=== PATIENT | male | born 2005 | race Caucasian/White ===

== ENCOUNTER 2023-04-04 19:13 | Emergency (ER) | payer OTHER, SELFPAY ==
[2023-04-04 19:38] VITALS: BP 123/82; PULSE 113; RESP 18; TEMP 37.4; O2SAT 97
[2023-04-04 19:40] VITALS: BP 123/82; BP 136/86; PULSE 110; PULSE 113; RESP 18; TEMP 37.4; O2SAT 99; BMI 25.1
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
[2023-04-04 21:45] LABS: MANUAL DIFF FLAG NO
[2023-04-04 21:47] LABS: Basophils Percent Auto 0.5 % (0-2); Eosinophils Absolute Auto 0.2 X10*3/uL (0.0-0.4); Eosinophils Percent Auto 1.8 % (0-4); Hematocrit 44.4 % (42.0-52.0); Hemoglobin 15.1 g/dl (14.0-18.0); Imm Gran Abs Auto 0.04 X10*3/uL (0.00-0.03); Imm Gran Pct Auto 0.5 % (0.0-0.4); Lymphocytes Absolute Auto 1.8 X10*3/uL (1.2-4.9); Lymphocytes Percent Auto 20.9 % (20-40); Mean Corpuscular Hemoglobin 27.7 pg (27.0-33.0); Mean Corpuscular Volume 81.5 fL (80.0-98.0); Mean Platelet Volume 9.9 fL (9.4-12.4); Monocytes Absolute Auto 0.8 X10*3/uL (0.1-1.2); Monocytes Percent Auto 8.9 % (2-11); Neutrophils Absolute Auto 5.8 x10*3/uL (2.0-8.3); Neutrophils Percent Auto 67.4 % (45-73); Platelet Count 292 X10*3/uL (160-400); Red Blood Count 5.45 X10*6/uL (4.60-5.80); Red Cell Distribution Width 13.5 % (11.0-16.0); White Blood Count 8.6 X10*3/uL (4.8-10.8)
[2023-04-04 22:07] LABS: Alanine Aminotransferase 22 U/L (0-40); Albumin Level 4.4 g/dL (3.5-5.0); Alkaline Phosphatase 65 U/L (39-117); Anion Gap 15 (12-20); Aspartate Amino Transferase 19 U/L (5-37); Bilirubin Direct 0.2 mg/dL (0.0-0.5); Bilirubin Total 0.3 mg/dL (0.0-1.0); Blood Urea Nitrogen 15 mg/dL (9-16); Calcium 9.6 mg/dL (8.4-10.2); Carbon Dioxide 28 mmol/L (22-29); Chloride 104 mmol/L (96-108); Creatinine Clr Calc Pharmacy 139.7; Estimated Glomerular Filt Rate > 60; Ethanol < 10 mg/dL; Glucose Random 104 mg/dL (60-115); Potassium 4.1 mmol/L (3.3-5.1); Sodium 143 mmol/L (135-145); Total Protein 7.6 g/dL (6.5-8.0)
--- NOTE | 2023-04-05 00:43 | PC.NURSE ---
late entry documentation on 2 client autism dx admitted without parent present client primarily new zealander speaking only, when initially interviewed with sed special education teacher present, patient would only repeat back what he was asked via interepreter, seemingly not understanding what he is being asked. t/w luckily had next admission which was from same ambulance company, clients information was asked of [facility] ambulance staff who sought out info from PD. t/w recived info and later pursued interview when sed special education teacher was available. t/w asked mother about recent behavior, patient gets hyperactive and when he's cleaning
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
--- NOTE | 2023-04-05 01:40 | PC.NURSE ---
[facility] number- [phone] [address].
--- NOTE | 2023-04-05 04:27 | MHC.EDTECH ---
t/w has attempted multiple times to obtain urine sample. pt seems to not understand my request due to cognitive challenges/perhaps language barrier. t/w had placed a hat on the toilet for pt to void in but pt put the hat in the toilet even after multiple times of redirecting pt to leave hat on the toilet. RN and PROVIDER AWARE.
[2023-04-05 05:33] VITALS: BP 125/80; PULSE 87; RESP 16; TEMP 37.4; O2SAT 99
--- NOTE | 2023-04-05 08:24 | PC.NURSE ---
awake, ambulated to the bathroom. able to obtain urine sample at this time.
[2023-04-05 08:33] LABS: Appearance Urine Clear; Color Urine Yellow; Glucose Urine UA Negative (Negative); Leukocyte Esterase Urine Negative (Negative); Nitrite Urine Negative (Negative); Specific Gravity - Urine 1.025 (1.005-1.025); Urine Blood Negative (Negative); Urine Ketones Negative (Negative); Urine Protein Negative (Neg-Trace)
[2023-04-05 08:44] LABS: Amphetamine Screen Urine Not Detected (Not Detect); Barbiturates, Urine Not Detected (Not Detect); Benzodiazepines Screen Urine Not Detected (Not Detect); Cannabinoid Screen Urine Not Detected (Not Detect); Cocaine Screen Urine Not Detected (Not Detect); Fentanyl, urine Not Detected (Not Detect); Opiate Screen Urine Not Detected (Not Detect); Phencyclidine Screen Urine Not Detected (Not Detect)
[2023-04-05 08:48] LABS: Bacteria Urine None Seen (None Seen); Hyaline Casts Urine 0-2 /LPF (0-2); RBC Urine 0-2 /HPF (0-2); Squamous Epithelial Cell Urine 0-2 /HPF (0-2); WBC Urine 0-5 /HPF (0-5)
[2023-04-05 10:25] VITALS: BP 145/91; PULSE 77; TEMP 37.1; O2SAT 98
--- NOTE | 2023-04-05 12:14 | MHC.CARE ---
Patient unable to participate in evaluation, parents are Togolese speaking and provided information via anesthesiology medical doctor. At this time they are seeking help accessing services in the community. Inpatient psychiatric treatment is not indicated and parents are comfortable bringing their son home. ED provider, Dr Cota updated and in agreement with plan of care.
--- NOTE | 2023-04-07 17:54 | MHC.CARE ---
Belinda from S returned my call seeking help for this family applying for disability services. She said that parents should reach out to [employer] in [place] ([phone]), the will help her with the application process and other steps needed for [facility] services, they speak multiple languages and know the process. In addition, they can enroll their son in the local public school, they will be required to test and educate until he is 20 years old. Call to patient's parents via [employer] and gave the above information.
== END 2023-04-05 13:56 | disposition home or self-care (01) ==
PROVIDERS: Emergency Provider Emergency Medicine
DX: F91.8 Other conduct disorders (principal); F84.0 Autistic disorder; Z79.899 Other long term (current) drug therapy
CPT/HCPCS: 36415; 80048; 80076; 80307; 81001; 85025; 99284; S9485